=== PATIENT | male | born 1995 | race Two or more races ===

== ENCOUNTER 2018-06-23 12:42 | Emergency (ER) | payer MEDICAID, OTHER ==
[2018-06-23] MEDS ORDERED: CEPHALEXIN 500 MG CAP PO ONE (12:58)
[2018-06-23] MEDS ORDERED: TDAP ADULT 0.5 ML INJ (BOOSTRIX) IM ONE (12:59)
--- NOTE | 2018-06-23 13:14 | EDPHY ---
H & P Time Seen by Provider: 06/23/18 12:54 HPI/ROS: CHIEF COMPLAINT: Right thumb laceration HISTORY OF PRESENT ILLNESS: 23-year-old left hand dominant male complaining of laceration to his right thumb palmar aspect at the IP joint after some glass broke onto this area shortly prior to arrival. He went to Urgent Care was referred to the ER. He notes difficulty flexing at the IP joint. He notes decreased sensation distal to laceration. His tetanus is out-of-date. PHYSICAL EXAM (Prior to examination, patient consented to physical exam, hands were washed and my usual and customary physical exam procedures followed) 1) GENERAL: Well-developed, well-nourished, alert and oriented. Appears to be in no acute distress. 2) HEAD: Normocephalic 3) HEENT: sclera anicteric 4) LUNGS: Breathing comfortably. 5) SKIN: Right thumb palmar aspect 2 cm transverse laceration at the IP joint. I am able to visualize a lacerated flexor tendon . He is unable to flex at the IP joint of the right thumb. 6) MUSCULOSKELETAL: Laceration to the right thumb. 7) NEUROLOGIC: Decreased 2 point discrimination distally Smoking Status: Never smoked Constitutional: Initial Vital Signs Temperature (C) 36.7 C 06/23/18 12:51 Heart Rate 96 06/23/18 12:51 Respiratory Rate 16 06/23/18 12:51 Blood Pressure 132/84 H 06/23/18 12:51 O2 Sat (%) 94 06/23/18 12:51 O2 Delivery Mode Room Air Allergies/Adverse Reactions: No Known Allergies Allergy (Unverified 06/23/18 12:51) Home Medications: Medication Instructions Recorded Cephalexin [Keflex] 500 mg PO TID 7 Days cap 06/23/18 MDM/Departure - MDM Imaging Results: Imaging Impressions Finger X-Ray 06/23/18 12:58 Impression: No radiopaque glass identified. Images reviewed myself Procedures: Procedure: Laceration repair. I explained the indications, risks and benefits for both laceration repair and anesthetic administration. Verbal consent was obtained from the patient. The laceration on the right thumb was anesthetized using 0.5% bupivicaine without epinephrine digital nerve block. After anesthetic administered the patient was observed for a period of time and had no apparent adverse effects. The wound was cleaned, prepped, draped in normal sterile fashion and explored to its base. No foreign body seen, no foreign bodies palpated. Tendon laceration was identified. Skin is closed with 6 simple interrupted 5 O Prolene sutures. The wound repair was complex. The procedure was performed by myself. Patient has been informed that scarring will occur, although efforts have been made to minimize this. Procedure: Splint A Velcro thumb spica splint was applied by ER photographic technician. After application of the splint I returned and re-examined the patient. The splint was adequately immobilizing the joint and distal to the splint the patient's circulation and sensation were intact. Patient shows no signs of compartment syndrome. Was given orthopedic precautions. Medications Given: Discontinued Medications Cephalexin HCl (Keflex) 500 mg PO EDNOW ONE PRN Reason: Protocol Stop: 06/23/18 12:59 Last Admin: 06/23/18 13:03 Dose: 500 mg Diphtheria/Tetanus/Acell Pertussis (Boostrix) 0.5 ml IM .ONCE ONE Stop: 06/23/18 13:00 Last Admin: 06/23/18 13:05 Dose: 0.5 ml ED Course/Re-evaluation: Re-evaluation with serial exams. Suspect more than likely flexor pollicis longus laceration. I consulted with Hand surgery Dr. Kiran Moran at 1350 hrs who agrees with plan of skin closure, immobilization, antibiotics, follow up in office this week (today is Saturday). - Depart Disposition: Home, Routine, Self-Care Clinical Impression: Laceration of right thumb with tendon involvement Qualifiers: Encounter type: initial encounter Qualified Code(s): S61.011A - Laceration without foreign body of right thumb without damage to nail, initial encounter Condition: Good Instructions: Tendon Laceration (ED) Additional Instructions: Return to the ER if you develop redness, swelling, discharge, warmth to the wound, red streaks going up your arm or any other symptoms that concern you. Prescriptions: Cephalexin [Keflex] 500 mg PO TID 7 Days cap Referrals: Kiran Moran MD [Medical Doctor] - 2-3 days, call for appt.
[2018-06-23 14:18] VITALS: BP 136/91
== END 2018-06-23 14:17 | disposition home or self-care (01) ==
PROC: 0HQFXZZ Repair Right Hand Skin, External Approach (ICD-10-PCS; principal; 2018-06-23)
DX: S61.011A Laceration without foreign body of right thumb without damage to nail, initial encounter (principal); W25.XXXA Contact with sharp glass, initial encounter
CPT/HCPCS: L3807

== ENCOUNTER 2018-07-02 10:20 | Day surgery (SDC) | payer MEDICAID ==
--- NOTE | 2018-07-01 14:07 | GHP ---
[f rep st] PREOP HISTORY AND PHYSICAL DATE OF ADMISSION: 07/02/2018 DATE OF PLANNED PROCEDURE: 07/02/2018 ADMISSION DIAGNOSIS: Flexor tendon laceration of IP joint, right thumb. PLANNED PROCEDURE: Flexor tendon repair, right thumb. HISTORY OF PRESENT ILLNESS: The patient is a 23-year-old male who sustained a flexor tendon lacerati on this past weekend while pulling out a piece of glass. He was seen in the ER. The wound was irrig ated, and skin was closed. He was started on oral antibiotics. He was placed in a splint and presen ts today for followup. He has no IP joint function at this point. PRIOR MEDICAL HISTORY: None. PRIOR SURGICAL HISTORY: None. ALLERGIES: No known drug allergies. SOCIAL HISTORY: He is a student at . He does not smoke. He does not drink alcohol. REVIEW OF SYSTEMS: Unremarkable. PHYSICAL EXAMINATION: GENERAL: Healthy-appearing 23-year-old male. VITAL SIGNS: He is 5 feet 11 i nches tall, weighs 185 pounds, blood pressure 108/69, heart rate 72, respiratory rate 12, on room air . GENERAL: Alert and oriented x3. HEENT: Normocephalic/atraumatic. Extraocular muscles are intac t. NECK: Supple. There is no lymphadenopathy, no JVD. CHEST: Clear to auscultation. CARDIOVASCU LAR: Regular rate and rhythm. ABDOMEN: Soft, nontender, nondistended. EXTREMITIES: Extremity exa m focusing on the thumb: He has a little diminished sensation on the radial tip; otherwise, sensatio n intact. Brisk capillary refill. No IP joint function. He does have function at the MCP joint. L aceration is healing uneventfully. No signs of infection. ASSESSMENT/PLAN: Flexor tendon laceration at the IP level, right thumb. PLAN: I recommended proceeding with a flexor tendon repair. This was described in detail. He will initially be immobilized for a few days and will start hand therapy. He will need to arrange this wi th his insurance as well. Risks and benefits including postoperative stiffness, possible need for ad ditional surgery were discussed. He understands these risks. He is to stay in the splint until Nikkod nicolasa's surgery. /[id number]/MODL
[2018-07-02] MEDS ORDERED: ceFAZolin 2 GM/DEXTROSE 100 ML IV ONE (10:36)
[2018-07-02] MEDS ORDERED: BUPIVACAINE 0.5% 30 ML SDV ONE (10:46)
[2018-07-02] MEDS ORDERED: LR 1,000 ML IV ONE (11:29)
--- NOTE | 2018-07-02 13:41 | PDHPUP ---
History & Physical Update H&P update statement: This history and physical update is based on an assessment of the patient which was completed after admission or registration (within 24 hours), but prior to the surgery/procedure. H&P update: H&P reviewed & patient examined, no change in patient's condition since H&P completed
[2018-07-02] MEDS ORDERED: MIDAZOLAM 2 MG/2 ML VIAL IVP ONE (13:47)
[2018-07-02] MEDS ORDERED: NALOXONE HCL 0.4 MG/ML INJ IVP PRN (13:48)
[2018-07-02] MEDS ORDERED: ACETAMINOPHEN 500 MG TAB PO PRN (13:48)
[2018-07-02] MEDS ORDERED: ALBUTEROL 3 ML DEYVIAL IH PRN (13:48)
[2018-07-02] MEDS ORDERED: HYDROCODONE/APAP 5/325 TAB PO PRN (13:48)
[2018-07-02] MEDS ORDERED: MIDAZOLAM 2 MG/2 ML VIAL ONE (13:48)
[2018-07-02] MEDS ORDERED: fentaNYL 100 MCG/2 ML INJ IVP PRN (13:48)
[2018-07-02] MEDS ORDERED: HYDROmorphONE/DILAUDID 1 MG/ML INJ IVP PRN (13:48)
[2018-07-02] MEDS ORDERED: ONDANSETRON 4 MG/2 ML VIAL IVP PRN (13:48)
--- NOTE | 2018-07-02 13:49 | PDANEPAE ---
ANE History of Present Illness R Thumb ANE Past Medical History - Cardiovascular History Hx Hypertension: No Hx Arrhythmias: No Hx Chest Pain: No Hx Coronary Artery / Peripheral Vascular Disease: No Hx CHF / Valvular Disease: No Hx Palpitations: No - Pulmonary History Hx COPD: No Hx Asthma/Reactive Airway Disease: No Hx Recent Upper Respiratory Infection: No Hx Oxygen in Use at Home: No Hx Sleep Apnea: No Sleep Apnea Screening Result - Last Documented: Negative - Neurologic History Hx Cerebrovascular Accident: No Hx Seizures: No Hx Dementia: No - Endocrine History Hx Diabetes: No - Renal History Hx Renal Disorders: No - Liver History Hx Hepatic Disorders: No - Neurological & Psychiatric Hx Hx Neurological and Psychiatric Disorders: No - Cancer History Hx Cancer: No - Congenital Disorder History Hx Congenital Disorders: No - GI History Hx Gastrointestinal Disorders: No - Other Health History Other Health History: R thumb injury requiring tendon repair. - Chronic Pain History Chronic Pain: No - Surgical History Prior Surgeries: Tooth extraction in childhood. ANE Review of Systems Review of Systems: - Exercise capacity METS (RN): 4 METS ANE Patient History - Allergies Allergies/Adverse Reactions: No Known Allergies Allergy (Verified 07/02/18 10:37) - Home Medications Home Medications: Multivitamins [Multivitamin (*)] 1 each PO DAILY 06/30/18 [Last Taken 06/25/18] - NPO status NPO Since - Liquids (Date): 07/01/18 NPO Since - Liquids (Time): 23:00 NPO Since - Solids (Date): 07/01/18 NPO Since - Solids (Time): 23:00 - Smoking Hx Smoking Status: Never smoked - Family Anes Hx Family Hx Anesthesia Complications: None. ANE Labs/Vital Signs - Vital Signs Blood Pressure: 138/78 Heart Rate: 81 Respiratory Rate: 16 O2 Sat (%): 95 Height: 180.34 cm Weight: 83.915 kg ANE Physical Exam - Airway Neck exam: FROM Mallampati Score: Class 2 Mouth exam: normal dental/mouth exam - Pulmonary Pulmonary: clear to auscultation - Cardiovascular Cardiovascular: regular rate and rhythym - ASA Status ASA Status: I ANE Anesthesia Plan Anesthesia Plan: MAC
[2018-07-02] MEDS ORDERED: PROPOFOL/EMULSION 500 MG/50 ML BOTTLE IV ONE (13:52)
[2018-07-02] MEDS ORDERED: fentaNYL 100 MCG/2 ML INJ ONE (13:56)
[2018-07-02] MEDS ORDERED: LIDOCAINE 1% 300 MG/30 ML SDV ONE (13:59)
[2018-07-02] MEDS ORDERED: PROPOFOL 200 MG/20 ML VIAL ONE (14:01)
--- NOTE | 2018-07-02 15:04 | POSTANESTH ---
Post Anesthetic Evaluation Cardiovascular Status: Normal, Stable Respiratory Status: Normal, Stable Level of Consciousness/Mental Status: Can Participate in Eval, Alert and Oriented Pain Control: Adequate, Prn Tx Ordered Nausea/Vomiting Control: Adequate, Prn Tx Ordered Complications Possibly Related to Anesthesia: None Noted
[2018-07-02 15:35] VITALS: BP 129/91
--- NOTE | 2018-07-02 22:08 | GOP ---
[f rep st] OPERATIVE REPORT DATE OF OPERATION: 07/02/2018 SURGEON: Kiran Moran MD ANESTHESIA: Monitored anesthesia care with digital nerve block by me. ANESTHESIOLOGIST: Austin Peng DO PREOPERATIVE DIAGNOSIS: Flexor tendon laceration, right thumb. POSTOPERATIVE DIAGNOSIS: Flexor tendon laceration, right thumb. PROCEDURE PERFORMED: Flexor tendon repair, right thumb. FINDINGS: INDICATIONS: The patient is a 23-year-old male who sustained a flexor tendon laceration about a week ago on a piece of glass, evaluated both in the emergency department where the wound was irrigated an d closed, and my office. Decision was made to proceed with a flexor tendon repair. DESCRIPTION OF PROCEDURE: After appropriate informed consent was obtained, the patient was taken to the operating room, and placed supine on the operating table. A time-out was performed. The patient was identified; the correct site was identified, and matched with radiographs available in the room. He received 2 g of Ancef preoperatively. Following monitored anesthesia care and sedation by Dr. Qi glover, I instilled 15 mL of 1% lidocaine plain in a digital block fashion to the thumb. We then prepp ed and draped the right thumb and upper extremity in the usual sterile fashion, exsanguinated the garsia b, and inflated the tourniquet to 250 mmHg. The previous sutures were removed from the emergency department. The wound was explored. I extended the incision slightly more proximal-ramon to retrieve the tendons. I then passed a 4-0 Ethibond sutu re in a locking configuration in the distal stump, repeated that procedure in the proximal stump, and then tied the two ends together, placing the knot between the pair. There was no gap formation. We then placed 3 additional core suture strands, locking the flexor tendons back together. The suture ends were all trimmed. The wound was irrigated. The digital nerve on both the radial and ulnar side s were visualized. They were intact without injury. Skin was loosely approximated with 4-0 nylon. I instilled an additional 10 mL of 0.5% Marcaine plain in a digital block fashion in the thumb for po stoperative analgesia. A splint in slight flexion was applied. The patient was awakened from anesth esia and taken to the recovery room in satisfactory condition. There were no immediate intraoperativ e complications. COMPLICATIONS: None. DRAINS: None. TOURNIQUET TIME: Total 38 minutes at 250 mmHg. /[id number]/MODL
== END 2018-07-02 15:57 | disposition home or self-care (01) ==
LOC: FSGY 10:20
PROVIDERS: ATTEND Orthopaedic Surgery
PROC: 0LQ70ZZ Repair Right Hand Tendon, Open Approach (ICD-10-PCS; principal; 2018-07-02 11:45)
DX: S56.021A Laceration of flexor muscle, fascia and tendon of right thumb at forearm level, initial encounter (principal); W25.XXXA Contact with sharp glass, initial encounter
CPT/HCPCS: J0690; J2250; J2704; J3010